=== PATIENT | male | born 1955 | race Caucasian/White ===

== ENCOUNTER 2018-05-28 13:11 | Outpatient (CLI) | payer OTHER | END 2018-05-28 13:12 | disposition home or self-care (01) | LOC: BICRAD 13:11 | PROVIDERS: ATTEND Internal Medicine Rheumatology | DX: M12.80 Other specific arthropathies, not elsewhere classified, unspecified site (principal); M47.892 Other spondylosis, cervical region; M47.896 Other spondylosis, lumbar region | CPT/HCPCS: 72052; 72100 ==

== ENCOUNTER 2022-08-02 10:12 | Outpatient (CLI) | payer MEDICARE | END 2022-08-02 10:13 | disposition home or self-care (01) | LOC: SCSMRI 10:12 | PROVIDERS: ATTEND Family Medicine | DX: M54.2 Cervicalgia (principal); M47.812 Spondylosis without myelopathy or radiculopathy, cervical region | CPT/HCPCS: 70250; 72141 ==